=== PATIENT | female | born 1995 | race American Indian/Alaskan Native ===

== ENCOUNTER 2017-05-12 14:12 | Outpatient (CLI) | payer MEDICAID ==
[2017-05-12] MEDS ORDERED: LACTATED RINGERS 500 ML IV ONE (14:22)
[2017-05-12 14:44] VITALS: BP 103/50
[2017-05-12] MEDS ORDERED: NITRATEST PAPER MC ONE (15:00)
[2017-05-12 15:13] LABS: Bacteria,Urine 1+ /HPF (Negative); Bilirubin,Urine NEG (Negative); Blood,Urine NEG (Negative); Ketones,Urine NEG (Negative); Leukocyte Esterase,Urine LG (Negative); Mucus,Urine FEW /HPF; Nitrite,Urine NEG (Negative); Protein,Urine <15 mg/dL mg/dL (Negative); Urobilinogen,Urine < 2.0 mg/dL (<2.0)
[2017-05-12] MEDS ORDERED: TYLENOL PO ONE (15:41)
--- NOTE | 2017-05-14 07:58 | Ultrasound Report ---
ULTRASOUND OB LIMITED History: well being Technique: Transabdominal ultrasound with Doppler interrogation. Gestation: Single Position: Cephalic Amniotic Fluid: Normal GRANT = 7.0 cm Heart Rate: 154 BPM
== END 2017-05-12 17:15 | disposition home or self-care (01) ==
LOC: TRG 14:12
PROVIDERS: ATTEND Obstetrics & Gynecology
DX: O47.03 False labor before 37 completed weeks of gestation, third trimester (principal); Z87.891 Personal history of nicotine dependence; Z3A.35 35 weeks gestation of pregnancy
CPT/HCPCS: 59025; 76815; 81001; J7120